=== PATIENT | female | born 1930 | race Caucasian/White ===

== ENCOUNTER 2021-04-26 16:41 | Inpatient (IN) | payer OTHER, SELFPAY ==
[~2021-04-26] VITALS: Ht 152.4 cm; Wt 45.4 kg
[2021-04-26 16:41] VITALS: BP_SYST 150
[~2021-04-26 16:41] MED LIST: PLENDIL
--- NOTE | 2021-04-26 17:38 | NUR ---
pt. sleeping, alert to name and birthday only, sleepy but arousable, denies any pain
--- NOTE | 2021-04-26 17:45 | NUR ---
spoke with pts. daughter able to get more history, pt. currently was released from [facility] and has been living with daughter she is typically alert and oriented and today was found in bathroom confused, has been known to get UTI in past which has caused confusion, otherwise has hx. of HTN, was vaccinated for covid, 06/25/2020 and 07/16/2020 Pfizer, pts. granddaughter who lives in same home is Covid +
--- NOTE | 2021-04-26 18:06 | NUR ---
labs drawn, chest xray done at bedside
[2021-04-26 18:21] LABS: BASOPHILS # (AUTO) 0.2 K/uL (0.0-0.2); BASOPHILS % (AUTO) 2.7 % (0.0-2.0); EOSINOPHILS % (AUTO) 0.2 % (0.0-4.0); HEMATOCRIT 41.5 % (36-48); HEMOGLOBIN 13.9 g/dL (12.0-16.0); LYMPHOCYTES # (AUTO) 0.7 K/uL (1.0-5.5); LYMPHOCYTES % (AUTO) 9.7 % (20.5-51.5); MEAN CORPUSCULAR HEMOGLOBIN 29 pg (27-31); MEAN CORPUSCULAR HGB CONC 34 % (32-36); MEAN CORPUSCULAR VOLUME 87 fL (79.0-98.0); MONOCYTES # (AUTO) 0.5 K/uL (0.0-1.0); NEUTROPHILS # (AUTO) 5.5 K/uL (1.8-7.7); NEUTROPHILS % (AUTO) 80.4 % (40.0-70.0); PLATELET COUNT (AUTO) 173 K/uL (130-430); RED BLOOD CELL COUNT(AUTO) 4.75 MIL/uL (4.2-6.2); RED CELL DISTRIBUTION WIDTH 13.5 % (9.0-15.0); WHITE BLOOD COUNT (AUTO) 6.8 K/uL (4.8-10.8)
--- NOTE | 2021-04-26 18:50 | NUR ---
ER at bedside examining patient.
[2021-04-26 19:05] LABS: ANION GAP 15 (5-15); CALCIUM 8.7 mg/dL (8.4-11.0); CHLORIDE 104 mmol/L (98-107); CREATININE 1.68 mg/dL (0.55-1.30); GLUCOSE 89 mg/dL (70-99); POTASSIUM 4.5 mmol/L (3.5-5.1); SODIUM SERUM 138 mmol/L (136-145); UREA NITROGEN, BLOOD 27 mg/dL (8-21)
[2021-04-26 19:22] LABS: ALANINE AMINOTRANSFERASE 13 U/L (12-78); ALBUMIN 3.3 g/dL (3.4-4.8); ASPARTATE AMINOTRANSFERASE 20 U/L (10-37); TOTAL BILIRUBIN 0.4 mg/dL (0.0-1.0)
[2021-04-26] MEDS ORDERED: NACL 0.9% 1,000 ML IV ONE ×2 (21:30→22:15)
[2021-04-26] MEDS ORDERED: PIPERACILLIN/TAZO 3.375 GM in NS 50 ML IV ONE (22:15)
--- NOTE | 2021-04-26 23:09 | NUR ---
pt move to ER bed 7.
[2021-04-26] MEDS ORDERED: PIPERACILLIN/TAZOBACTAM 3.375 GM/VIAL (ZOSYN) IV ONE (23:49)
--- NOTE | 2021-04-27 | NUR ---
Patient will be admitted to care of DR. SPRINGER. Admitted to MED SURG unit. Belongings list completed. Complete and up to date summary report printed. SBAR report to be given at bedside with opportunity for questions.
[2021-04-27 00:09] LABS: ANION GAP 14 (5-15); CALCIUM 8.5 mg/dL (8.4-11.0); CHLORIDE 105 mmol/L (98-107); CREATININE 1.69 mg/dL (0.55-1.30); GLUCOSE 87 mg/dL (70-99); POTASSIUM 4.8 mmol/L (3.5-5.1); SODIUM SERUM 137 mmol/L (136-145); UREA NITROGEN, BLOOD 30 mg/dL (8-21)
--- NOTE | 2021-04-27 00:10 | NUR ---
PT C/O INCREASED ALOC PER FAMILY. PT HAS HX OF DEMENTIA. IN ED PT IS A/O X3, SLEEPY BUT AROUSABLE TO TOUCH.
[2021-04-27 00:30] LABS: BILIRUBIN,URINE NEGATIVE (NEGATIVE); BLOOD, URINE 1+ (NEGATIVE); CLARITY/URINE OTHER (CLEAR); COLOR,URINE YELLOW (YELLOW); GLUCOSE,URINE NEGATIVE (NEGATIVE); KETONES,URINE TRACE (NEGATIVE); LEUKOCYTE ESTERASE ,URINE 2+ (NEGATIVE); NITRITE, URINE NEGATIVE (NEGATIVE); PROTEIN URINE TRACE (NEGATIVE); UROBILINOGEN,URINE 0.2 (0.2-1.0)
[2021-04-27] MEDS ORDERED: ASPIRIN 325 MG TABLET PO ONE (00:30)
--- NOTE | 2021-04-27 00:30 | NUR ---
Patient's code status is FULL CODE paperwork completed and placed in chart.
[2021-04-27 00:45] LABS: BACTERIA,URINE MANY /HPF (None Seen); WBC,URINE 80-100 /HPF (0-3)
[2021-04-27 00:46] LABS: MUCUS,URINE None Seen /LPF (None Seen); URINE AMORPHOUS URATE 2+ /HPF (None Seen)
[2021-04-27] MEDS ORDERED: MIRT7.5T11 PO (02:46)
[2021-04-27] MEDS ORDERED: ATOR20TA64 PO (02:46)
[2021-04-27] MEDS ORDERED: ASPI-859 PO (02:46)
[2021-04-27] MEDS ORDERED: OXYB10TA4 PO (02:46)
[2021-04-27] MEDS ORDERED: CARV6.2554 PO (02:46)
[2021-04-27] MEDS ORDERED: FURO-150 PO (02:46)
--- NOTE | 2021-04-27 02:46 | NUR ---
Medication reconciliation completed with information provided by PT MEDICATION BOTTLES. Any prior medication reconciliation on file was reviewed and corrected.
--- NOTE | 2021-04-27 04:00 | NUR ---
Patient resting quietly. No acute distress noted. VSS.
--- NOTE | 2021-04-27 06:56 | NUR ---
Patient resting quietly. No acute distress noted. VSS.
--- NOTE | 2021-04-27 07:12 | NUR ---
REPORT GIVEN TO CASSANDRA SALDANA
[2021-04-27] MEDS ORDERED: ONDANSETRON HCL 4 MG/2 ML VIAL IVP PRN (07:15)
[2021-04-27] MEDS ORDERED: HYDROcodone/ACETAMIN 5-325 MG TAB (NORCO/ VICODIN) PO PRN (07:15)
[2021-04-27] MEDS ORDERED: ACETAMINOPHEN 325 MG TABLET PO PRN ×2 (07:15→10:00)
[2021-04-27] MEDS ORDERED: HYDROcodone/ACETAMIN 10-325 MG TAB PO PRN (07:15)
[2021-04-27] MEDS ORDERED: LORazepam 2 MG/ML VIAL IVP PRN (07:15)
[2021-04-27] MEDS ORDERED: NALOXONE HCL 0.4 MG/ML AMP (NARCAN) IVP PRN ×2 (07:15)
--- NOTE | 2021-04-27 08:40 | NUR ---
NASAL SWAB COLLECTED AND SENT TO LAB FOR PCR.
--- NOTE | 2021-04-27 08:50 | NUR ---
TO [facility] TRANSFERRED PT TO ROOM 125-C, REPORT GIVEN TO LES OWENS. DR CRAMER CAME IN AND EXAMINED PT.
--- NOTE | 2021-04-27 08:50 | NUR ---
Patient transferred to unit in stable condition.
[2021-04-27] MEDS ORDERED: cefTRIAXone 1 GM IVPB PREMIX 50 ML IV SCH (09:00)
[2021-04-27] MEDS ORDERED: FUROSEMIDE 20 MG TABLET PO SCH (09:00)
--- NOTE | 2021-04-27 09:02 | NUR ---
CONSULTATION PAGED/CALLED Reason for Consultation: [] ACUTE KIDNEY INJURY Person Who was Notified: [] DR CRANDALL Consulting Physician: [] DR CRANDALL Dent Remover Specialty: [] NEPHRO Ordering Physician: [] DR SPRINGER
--- NOTE | 2021-04-27 09:04 | NUR ---
CONSULTATION PAGED/CALLED Reason for Consultation: [] UTI Person Who was Notified: [] MALLIKA Consulting Physician: [] DR SANTOS Offbearer Sewer Pipe Specialty: [] ID Ordering Physician: [] DR SPRINGER
--- NOTE | 2021-04-27 09:05 | NUR ---
Patient resting comfortably in bed with Dr. Mata at bedside. No distress noted, no complaint of any pain at this time.
--- NOTE | 2021-04-27 09:06 | NUR ---
CONSULTATION PAGED/CALLED Reason for Consultation: [] ELEVATED TROP Person Who was Notified: [] LOLITA Consulting Physician: [] DR Eduardo CRAMER Risk Control Specialist Specialty: [] CARDIO Ordering Physician: [] DR SPRINGER
--- NOTE | 2021-04-27 09:10 | NUR ---
Note Received report from Rica SALDANA for continuation for of care.
[2021-04-27] MEDS: D5/0.45 NS 1,000 ML IV SCH ×3 (10:00→21:21)
[2021-04-27 10:20] VITALS: BP_SYST 151
[2021-04-27 10:27] VITALS: BP_SYST 151
[2021-04-27] MEDS: NACL 0.9% 500 ML IV SCH ×3 (11:48→21:21)
[2021-04-27] MEDS: OXYBUTYNIN CHLORIDE 5 MG TABLET PO SCH ×2 (11:48→21:20)
[2021-04-27] MEDS: ASPIRIN 81 MG TABLET(ECOTRIN) PO SCH (11:48)
[2021-04-27] MEDS: CARVEDILOL 6.25 MG TABLET (COREG) PO SCH ×2 (11:49→17:10)
--- NOTE | 2021-04-27 13:23 | NUR ---
ORDERED BY [facility]/HCP CM LEIGHELDER LADD, FAXED THE CLINIC[facility], H[facility] [phone] )
[2021-04-27 14:41] LABS: BASOPHILS % (AUTO) 0.4 % (0.0-2.0); EOSINOPHILS % (AUTO) 0.6 % (0.0-4.0); HEMATOCRIT 38.1 % (36-48); HEMOGLOBIN 12.2 g/dL (12.0-16.0); LYMPHOCYTES % (AUTO) 27.4 % (20.5-51.5); MEAN CORPUSCULAR HEMOGLOBIN 29 pg (27-31); MEAN CORPUSCULAR HGB CONC 32 % (32-36); MEAN CORPUSCULAR VOLUME 91 fL (79.0-98.0); MONOCYTES # (AUTO) 0.3 K/uL (0.0-1.0); MONOCYTES % (AUTO) 9.5 % (1.7-9.3); NEUTROPHILS # (AUTO) 2.2 K/uL (1.8-7.7); NEUTROPHILS % (AUTO) 62.1 % (40.0-70.0); PLATELET COUNT (AUTO) 61 K/uL (130-430); RED BLOOD CELL COUNT(AUTO) 4.18 MIL/uL (4.2-6.2); RED CELL DISTRIBUTION WIDTH 14.1 % (9.0-15.0); WHITE BLOOD COUNT (AUTO) 3.5 K/uL (4.8-10.8)
[2021-04-27] MEDS ORDERED: AZITHROMYCIN 500 MG in NS 250 ML IV ONE (15:00)
[2021-04-27 16:00] VITALS: BP_SYST 133
[2021-04-27] MEDS: CEFEPIME 0.5 GM in D5W 50 ML IV SCH (17:09)
--- NOTE | 2021-04-27 19:00 | NUR ---
Note Pt sitting up in bed eating her dinner. Pt was checked on q1' and PRN all shift for needs and care. Pt's bed in low position and bed alarm on all shift. Pt was maintained with safety and isolation precautions (for PUI COVID) all shift. IV in right AC intact and patent infusing IVF's well. Tele unit attached and intact all shift. Pt stable at this time and no needs noted. Call light within reach.
[2021-04-27] MEDS ORDERED: MIRTAZAPINE 15 MG TABLET PO SCH (21:00)
[2021-04-27] MEDS ORDERED: ATORVASTATIN 20 MG TABLET PO SCH (21:00)
[2021-04-28] VITALS (8 sets, daily range): BP systolic 119–147
[2021-04-28] MEDS: NACL 0.9% 500 ML IV SCH ×4 (00:30→15:46)
[2021-04-28] MEDS: D5/0.45 NS 1,000 ML IV SCH (06:28)
[2021-04-28 07:45] LABS: BASOPHILS % (AUTO) 1.3 % (0.0-2.0); EOSINOPHILS # (AUTO) 0.2 K/uL (0.0-0.4); EOSINOPHILS % (AUTO) 4.4 % (0.0-4.0); HEMATOCRIT 34.3 % (36-48); HEMOGLOBIN 11.4 g/dL (12.0-16.0); LYMPHOCYTES # (AUTO) 1.1 K/uL (1.0-5.5); LYMPHOCYTES % (AUTO) 31.3 % (20.5-51.5); MEAN CORPUSCULAR HEMOGLOBIN 29 pg (27-31); MEAN CORPUSCULAR HGB CONC 33 % (32-36); MEAN CORPUSCULAR VOLUME 88 fL (79.0-98.0); MONOCYTES # (AUTO) 0.3 K/uL (0.0-1.0); MONOCYTES % (AUTO) 7.5 % (1.7-9.3); NEUTROPHILS % (AUTO) 55.5 % (40.0-70.0); PLATELET COUNT (AUTO) 131 K/uL (130-430); RED BLOOD CELL COUNT(AUTO) 3.91 MIL/uL (4.2-6.2); RED CELL DISTRIBUTION WIDTH 13.4 % (9.0-15.0); WHITE BLOOD COUNT (AUTO) 3.5 K/uL (4.8-10.8)
[2021-04-28] MEDS: ASPIRIN 81 MG TABLET(ECOTRIN) PO SCH (09:14)
[2021-04-28] MEDS: OXYBUTYNIN CHLORIDE 5 MG TABLET PO SCH (09:14)
[2021-04-28] MEDS: CARVEDILOL 6.25 MG TABLET (COREG) PO SCH (09:15)
[2021-04-28 09:22] LABS: ANION GAP 10 (5-15); CALCIUM 8.1 mg/dL (8.4-11.0); CHLORIDE 111 mmol/L (98-107); CREATININE 1.53 mg/dL (0.55-1.30); GLUCOSE 77 mg/dL (70-99); POTASSIUM 4.1 mmol/L (3.5-5.1); SODIUM SERUM 142 mmol/L (136-145); UREA NITROGEN, BLOOD 25 mg/dL (8-21)
--- NOTE | 2021-04-28 11:15 | NUR ---
Nutrition Update Fadi Scale 16 noted. Pt admitted for dehydration, UTI. Diet: cardiac BMI: 19.5 kg/m2 RD to follow per nutrition care standards.
[2021-04-28] MEDS: CEFEPIME 0.5 GM in D5W 50 ML IV SCH (15:58)
== END 2021-04-28 15:30 | disposition hospice, home (50) | DRG 871 ==
LOC: SED 16:41 → SMU 23:46 → STU 04-27 12:58
PROVIDERS: ADMIT Internal Medicine Hospice and Palliative Medicine; ATTEND Internal Medicine Hospice and Palliative Medicine
DX: A41.9 Sepsis, unspecified organism (principal); G93.41 Metabolic encephalopathy; I21.9 Acute myocardial infarction, unspecified; J18.9 Pneumonia, unspecified organism; N17.0 Acute kidney failure with tubular necrosis; N39.0 Urinary tract infection, site not specified; N17.9 Acute kidney failure, unspecified; E11.9 Type 2 diabetes mellitus without complications; F03.90 Unspecified dementia, unspecified severity, without behavioral disturbance, psychotic disturbance, mood disturbance, and anxiety; Z20.822 Contact with and (suspected) exposure to COVID-19; E78.5 Hyperlipidemia, unspecified; I10 Essential (primary) hypertension; Z91.041 Radiographic dye allergy status; Z86.73 Personal history of transient ischemic attack (TIA), and cerebral infarction without residual deficits; Z87.440 Personal history of urinary (tract) infections; Z51.5 Encounter for palliative care
CPT/HCPCS: 36415; 70450-TC; 71045; 76376; 76770; 80048; 80053; 81000; 82550; 83605; 83735; 84100; 84484; 85025; 87086; 93005; 93306; 96365; 99285; G0378; J0456; J0692; J0696; J2543; J7050; J7060; U0003